=== PATIENT | female | born 2000 | race Caucasian/White ===

== ENCOUNTER 2021-04-27 21:47 | Emergency (ER) | payer SELFPAY ==
[2021-04-27 21:48] VITALS: BP 142/79; PULSE 119; RESP 12; RESP 14; TEMP 37.3; O2SAT 96
[2021-04-27 22:16] VITALS: BP 138/97; PULSE 106; RESP 22
--- NOTE | 2021-04-27 22:30 | ED.GENADULT ---
HPI - General Adult General Chief complaint: Overdose Stated complaint: OD Time Seen by Provider: 04/27/21 21:51 History of Present Illness HPI narrative: Patient 21-year-old female presents the emergency department with complaint of overdose. Patient reports that today she was with her significant other went to [place] and reports that every time she goes to [place] she relapses on her addiction. The patient states took 5 caps of what she thinks is fentanyl patient was found unresponsive by EMS and was given Narcan prior to arrival. On arrival here the patient reports that she still feels a little drowsy but also feels as though she started to have a little bit of withdrawal symptoms. Patient denies suicidal or homicidal ideation. Related Data Allergies Allergy/AdvReac Type Severity Reaction Status Date / Time shellfish derived Allergy Unknown Verified 04/27/21 22:05 Review of Systems Review of Systems: Narrative: A 10 system review of systems was completed on the patient and is negative except for what is stated in the HPI. Nursing and ancillary documentation was reviewed. PMFSH Social History Social History Substance use type: marijuana and opiates Exam Narrative: Exam Narrative: GENERAL: Well-appearing, well-nourished, and in no acute distress. HEAD: Normocephalic, atraumatic. EYES: PERRLA and EOMI. ENT: Nares clear, no rhinorrhea or epistaxis. Mucous membranes moist. NECK: Supple. CHEST: Clear to auscultation. No respiratory distress. HEART: Regular rate and rhythm. No murmur heard. Normal peripheral pulses. ABDOMEN: Soft, nontender, nondistended, normal active bowel sounds. EXTREMITIES: Normal range of motion. No edema. SKIN: Warm, dry, no rash. NEURO: No focal deficits. Alert and oriented x3. PSYCH: Normal mood and affect. Course Course Emergency Course: Patient was observed in the emergency department and proceeded to get up and managed to leave the emergency department. Vital Signs Vital signs: Vital Signs Temperature 37.3 C 04/27/21 21:48 Pulse Rate 119 H 04/27/21 21:48 Respiratory Rate 12 04/27/21 21:48 Blood Pressure 142/79 H 04/27/21 21:48 Pulse Oximetry 96 04/27/21 21:48 Temperature 37.3 C 04/27/21 21:48 Pulse Rate 113 H 04/27/21 23:36 Respiratory Rate 24 H 04/27/21 23:36 Blood Pressure 132/77 04/27/21 23:36 Pulse Oximetry 100 04/27/21 23:36 Medical Decision Making Vital Signs Vital Signs: Vital Signs Temperature 37.3 C 04/27/21 21:48 Pulse Rate 119 H 04/27/21 21:48 Respiratory Rate 12 04/27/21 21:48 Blood Pressure 142/79 H 04/27/21 21:48 Pulse Oximetry 96 04/27/21 21:48 Temperature 37.3 C 04/27/21 21:48 Pulse Rate 113 H 04/27/21 23:36 Respiratory Rate 24 H 04/27/21 23:36 Blood Pressure 132/77 04/27/21 23:36 Pulse Oximetry 100 04/27/21 23:36 Discharge Plan Discharge Clinical Impression: Drug overdose Qualifiers: Encounter type: initial encounter Injury intent: accidental or unintentional Qualified Code(s): T50.901A - Poisoning by unspecified drugs, medicaments and biological substances, accidental (unintentional), initial encounter Patient Disposition: Elopement After Seen by Prov Condition: Stable Instructions: Polysubstance Abuse (ED), Adult Overdose (ED) Follow-up/Referrals: Tyrell Wheeler MD [Physician] - PHYSICIAN NOT ON STAFF,NONSTAFF [Primary Care Provider] - Time of Disposition: 00:12
[2021-04-27 22:46] VITALS: BP 142/82; PULSE 103; RESP 14
[2021-04-27 23:01] VITALS: BP 130/82; PULSE 112; RESP 10; O2SAT 95
[2021-04-27] MEDS: NALOXONE HCL INJ 2 MG/2 ML AMP IV PUSH (23:35)
[2021-04-27 23:36] VITALS: BP 132/77; PULSE 113; RESP 24; O2SAT 100
--- NOTE | 2021-04-28 00:10 | PC.NURSE ---
Pt walked out of ED with visitor, IV still in place. Pt was to be in [place] police custody after discharge. ED security following pt and visitor out of hospital at this time.
== END 2021-04-28 00:10 | disposition left against medical advice (07) ==
PROVIDERS: Emergency Provider Emergency Medicine
DX: T50.901A Poisoning by unspecified drugs, medicaments and biological substances, accidental (unintentional), initial encounter (principal)
CPT/HCPCS: 96374; 99284; J2310